=== PATIENT | female | born 1980 | race American Indian/Alaskan Native ===

== ENCOUNTER 2016-11-24 21:05 | Emergency (ER) | payer OTHER ==
[2016-11-24] MEDS ORDERED: CATAPRES ONE (21:50)
[2016-11-24] MEDS ORDERED: CATAPRES PO ONE (22:10)
[2016-11-25] MEDS ORDERED: MOTRIN PO ONE (07:31)
[2016-11-25] MEDS ORDERED: NORVASC PO ONE (07:32)
--- NOTE | 2016-11-25 07:36 | Emergency Department Report ---
HPI - General Chief Complaint: Medical Clearance Time Seen by Provider: 11/25/16 07:30 - HPI HPI: 36-year-old -[place] female comes in for complaint of fever or chills lightheadedness 2 days. Patient reports that she has been dealing with cold symptoms and generalized body pains for about 2 weeks. She admits to nasal congestion denies any headaches denies any sore throats admit to sneezing and coughing that been going on for 2-3 days occasionally. Is taken no medication she has a past medical history of hypertension and arthritis she currently takes no medication for hypertension states that the last time she went to her primary care provider they did not give her any prescriptions. Review of chart shows that her blood pressure was 152/108. ED Past Medical Hx - Past Medical History Previous Medical History?: Yes Hx Hypertension: Yes - Surgical History Past Surgical History?: No - Social History Smoking Status: Never Smoker - Medications Home Medications: Home Medications Medication Instructions Recorded Confirmed Last Taken Type Fluticasone [Flonase] 1 spray NS QDAY #1 bottle 11/25/16 Unknown Rx Hydrochlorothiazide [HCTZ] 25 mg PO QDAY #30 tablet 11/25/16 Unknown Rx Ibuprofen [Motrin 800 MG tab] 800 mg PO ONCE #30 tablet 11/25/16 Unknown Rx Loratadine/Pseudoephedrine 1 tab PO Q12H #60 tablet 11/25/16 Unknown Rx [Claritin-D 12HR] amLODIPine [Norvasc] 10 mg PO DAILY #30 tab 11/25/16 Unknown Rx ED Review of Systems ROS: Stated complaint: FEVER Other details as noted in HPI Constitutional: chills, fever ENT: congestion (nasal congestion), other (sneezing). denies: ear pain, throat pain Respiratory: cough, other. denies: shortness of breath, wheezing Cardiovascular: denies: chest pain, palpitations Gastrointestinal: denies: abdominal pain, nausea, diarrhea Genitourinary: denies: urgency, dysuria, discharge Musculoskeletal: denies: back pain, joint swelling, arthralgia Skin: denies: rash, lesions Physical Exam - Physical Exam Vital Signs: Vital Signs 11/24/16 11/24/16 11/25/16 21:55 23:29 02:27 Temperature 98.9 F Pulse Rate 86 85 98 H Respiratory 18 20 Rate Blood Pressure 199/127 Blood Pressure 175/115 152/108 [Left] O2 Sat by Pulse 100 100 Oximetry 11/25/16 05:26 Temperature 98.4 F Pulse Rate 68 Respiratory 18 Rate Blood Pressure 154/102 Blood Pressure [Left] O2 Sat by Pulse 98 Oximetry General: Patient's alert and oriented 3. Physical Exam: GENERAL: Alert and oriented x3, no apparent distress, Normal Gait, atraumatic. HEAD: Head is normocephalic and a-traumatic. EYES: Extra ocular muscles are intact. Pupils are equal, round, and reactive to light and accommodation. EARS: symetrical, atraumatic, non tender, ear canal clear and moderate cerumen, tympanic membrance non inflamed. gross auditory nml bilaterally. NOSE: Nose symetrical, Nontender,Nares appeared normal. MOUTH:Mouth is well hydrated and without lesions. Tonsils nonerythematous or swollen, Uvula midline, Tongue not elevated. Mucous membranes are moist. Posterior pharynx clear, no exudate or lesions. Patent airways. NECK: Supple. Non edematous, No carotid bruits. No lymphadenopathy or thyromegaly. LUNGS: Symetrical with respiration, No wheezing, no rales or crackles, CTAB. HEART: S1, S2 present, regular rate and rhythm without murmur, no rubs, no gallops. ABDOMEN: No organomegaly was noted,Positive bowel sounds, soft, and non- distended. . Nontender to palpation on all Quadrants, NO CVA tenderness. EXTREMITIES/MUSCULOSKELETAL: No cyanosis, clubbing, rash, lesions or edema. Full ROM bilaterally. UE/LE Pulses 2+ bilaterally. LE and UE 5+ strength bilaterally NEUROLOGIC: No focal Deficit, Cranial nerves II through XII are grossly intact. No loss of sensation, No facial droop, PSYCHIATRIC: Mood is congruent with affect, denies suicidal or homicidal ideations. SKIN: Warm and dry, No lesions, No ulceration or induration present ED Course Vital Signs 11/24/16 11/24/16 11/25/16 21:55 23:29 02:27 Temperature 98.9 F Pulse Rate 86 85 98 H Respiratory 18 20 Rate Blood Pressure 199/127 Blood Pressure 175/115 152/108 [Left] O2 Sat by Pulse 100 100 Oximetry 11/25/16 05:26 Temperature 98.4 F Pulse Rate 68 Respiratory 18 Rate Blood Pressure 154/102 Blood Pressure [Left] O2 Sat by Pulse 98 Oximetry ED Medical Decision Making - Medical Decision Making Patient's been evaluated by this provider in fast track. 1. we'll give patient ibuprofen 800 mg for body aches. 2. We'll give patient Norvasc 10 mg by mouth now for elevated diastolic 3. We will discharge patient on Zyrtec's 10 mg by mouth daily Flonase 50 mcg 1 spray to each nostril daily 4. Ibuprofen 800 mg one tablet by mouth 3 times a day 5. Hypertension we'll send the patient out on hydrochlorothiazide 25 mg by mouth daily as well as Norvasc 10 mg one tablet by mouth daily we will refer her back to her primary care provider for further evaluation. Critical care attestation.: If time is entered above; I have spent that time in minutes in the direct care of this critically ill patient, excluding procedure time. ED Disposition Clinical Impression: URI (upper respiratory infection) Qualifiers: URI type: unspecified URI Qualified Code(s): J06.9 - Acute upper respiratory infection, unspecified HTN (hypertension) Qualifiers: Hypertension type: essential hypertension Qualified Code(s): I10 - Essential ( primary) hypertension Is pt being admited?: No Does the pt Need Aspirin: No Condition: Stable Instructions: Hypertension (ED), Upper Respiratory Infection (ED) Additional Instructions: Please take medications as prescribed and follow up with her primary care provider within 1-2 weeks. For recheck of blood pressure. See him sooner if symptoms does not get any better or continues to get worse. Prescriptions: amLODIPine [Norvasc] 10 mg PO DAILY #30 tab Fluticasone [Flonase] 1 spray NS QDAY #1 bottle Hydrochlorothiazide [HCTZ] 25 mg PO QDAY #30 tablet Ibuprofen [Motrin 800 MG tab] 800 mg PO ONCE #30 tablet Loratadine/Pseudoephedrine [Claritin-D 12HR] 1 tab PO Q12H #60 tablet Referrals: DR JAVIER [Other] - 3-5 Days Forms: Work/School Release Form(ED)
[2016-11-25 09:36] VITALS: BP 153/129
== END 2016-11-25 09:41 | disposition home or self-care (01) ==
LOC: ED 21:05
DX: J06.9 Acute upper respiratory infection, unspecified (principal); I10 Essential (primary) hypertension
CPT/HCPCS: 99283

== ENCOUNTER 2021-05-28 13:55 | Emergency (ER) | payer OTHER ==
[2021-05-28 14:23] VITALS: BP 151/99
--- NOTE | 2021-05-28 15:49 | Emergency Department Report ---
ED General Adult HPI - General Chief complaint: Medical Clearance Stated complaint: FATIGUE/DISCHARGE [facility] 05/15 Time Seen by Provider: 05/28/21 15:45 Source: patient Mode of arrival: Wheelchair Limitations: No Limitations - History of Present Illness Initial comments: Patient is a 41-year-old female who presents emergency room with complaints of wanting to be retested for COVID-19. Patient states that she tested positive for COVID-19 on 05/15/2021 at [facility] and reports that she was able to be discharged home in did not have to be admitted to the hospital or placed on oxygen. Patient presents to the emergency room stating that she wants to be retested and have another x-ray. She reports that her previous x-ray showed pneumonia and she was given prescriptions at that time. Patient states that her symptoms currently are generalized weakness, fatigue, body aches. Patient denies any worsening of her symptoms and reports that they have been stable since 05/15/2021. Past medical history of lupus. No allergies to medications. - Related Data Previous Rx's Medication Instructions Recorded Last Taken Type Fluticasone [Flonase] 1 spray NS QDAY #1 bottle 11/25/16 Unknown Rx Ibuprofen [Motrin 800 MG tab] 800 mg PO ONCE #30 tablet 11/25/16 Unknown Rx Loratadine/Pseudoephedrine 1 tab PO Q12H #60 tablet 11/25/16 Unknown Rx [Claritin-D 12HR] amLODIPine [Norvasc] 10 mg PO DAILY #30 tab 11/25/16 Unknown Rx hydroCHLOROthiazide [HCTZ] 25 mg PO QDAY #30 tablet 11/25/16 Unknown Rx Allergies Allergy/AdvReac Type Severity Reaction Status Date / Time No Known Allergies Allergy Verified 11/24/16 22:02 ED Review of Systems ROS: Stated complaint: FATIGUE/DISCHARGE [facility] 05/15 Other details as noted in HPI Comment: All other systems reviewed and negative ED Past Medical Hx - Past Medical History Hx Hypertension: Yes Additional medical history: LUPUS/ GOUT/RA - Surgical History Past Surgical History?: No - Social History Smoking Status: Never Smoker - Medications Home Medications: Home Medications Medication Instructions Recorded Confirmed Last Taken Type Fluticasone [Flonase] 1 spray NS QDAY #1 bottle 11/25/16 Unknown Rx Ibuprofen [Motrin 800 MG tab] 800 mg PO ONCE #30 tablet 11/25/16 Unknown Rx Loratadine/Pseudoephedrine 1 tab PO Q12H #60 tablet 11/25/16 Unknown Rx [Claritin-D 12HR] amLODIPine [Norvasc] 10 mg PO DAILY #30 tab 11/25/16 Unknown Rx hydroCHLOROthiazide [HCTZ] 25 mg PO QDAY #30 tablet 11/25/16 Unknown Rx ED Physical Exam - General Limitations: No Limitations General appearance: alert, in no apparent distress - Head Head exam: Present: atraumatic, normocephalic - Eye Eye exam: Present: normal appearance - ENT ENT exam: Present: mucous membranes moist - Respiratory Respiratory exam: Present: normal lung sounds bilaterally. Absent: respiratory distress, wheezes, rales, rhonchi, stridor, chest wall tenderness, accessory muscle use, decreased breath sounds, prolonged expiratory - Cardiovascular Cardiovascular Exam: Present: regular rate, normal rhythm, normal heart sounds. Absent: systolic murmur, diastolic murmur, rubs, gallop - Neurological Exam Neurological exam: Present: alert, oriented X3, CN II-XII intact, normal gait. Absent: motor sensory deficit - Psychiatric Psychiatric exam: Present: normal affect, normal mood - Skin Skin exam: Present: warm, dry, intact ED Course Vital Signs 05/28/21 14:21 Temperature 98 F Pulse Rate 94 H Respiratory 20 Rate Blood Pressure 151/99 [Right] O2 Sat by Pulse 96 Oximetry ED Medical Decision Making - Medical Decision Making Patient is a 41-year-old female who presents emergency room with complaints of wanting to be retested for COVID-19. Patient states that she tested positive for COVID-19 on 05/15/2021 at [facility] and reports that she was able to be discharged home in did not have to be admitted to the hospital or placed on oxygen. Patient presents to the emergency room stating that she wants to be retested and have another x-ray. She reports that her previous x-ray showed pneumonia and she was given prescriptions at that time. Patient states that her symptoms currently are generalized weakness, fatigue, body aches. Patient denies any worsening of her symptoms and reports that they have been stable since 05/15/2021. Past medical history of lupus. No allergies to medications. Vitals are stable. I ambulated patient in the emergency department and she was able to maintain oxygen saturation of 96% or greater on room air. Patient does not meet hospital criteria for admission at this time. This hospital facility does not test for COVID-19 for patients that are being discharged. Given that patient had signs of viral pneumonia almost 2 weeks ago, this likely has not yet resolved as COVID-19 pneumonia can show signs on x-rays for up to 3 months. Discussed the importance of outpatient primary care follow-up for reexamination. Discussed strict return precautions with patient. Advised patient May take Tylenol or ibuprofen as needed for any discomfort. Increase your fluid intake. Follow-up with your primary care doctor for reevaluation. Return to emergency room for any new or worsening symptoms. Critical care attestation.: If time is entered above; I have spent that time in minutes in the direct care of this critically ill patient, excluding procedure time. ED Disposition Clinical Impression: COVID-19 Disposition: 01 HOME / SELF CARE / HOMELESS Is pt being admited?: No Does the pt Need Aspirin: No Condition: Stable Instructions: COVID-19 Frequently Asked Questions, COVID-19 Additional Instructions: May take Tylenol or ibuprofen as needed for any discomfort. Increase your fluid intake. Follow-up with your primary care doctor for reevaluation. Return to emergency room for any new or worsening symptoms. Referrals: your, primary care doctor [Other] - 2-3 Days Time of Disposition: 15:48 Print Language: HAITIAN
== END 2021-05-28 16:26 | disposition home or self-care (01) ==
LOC: ED 13:55
DX: U07.1 COVID-19 (principal); I10 Essential (primary) hypertension; M10.9 Gout, unspecified; M32.9 Systemic lupus erythematosus, unspecified; M06.9 Rheumatoid arthritis, unspecified
CPT/HCPCS: 99282

== ENCOUNTER 2021-06-23 13:38 | Outpatient (CLI) | payer OTHER ==
[2021-06-23 14:30] LABS: Albumin 2.9 g/dL (3.9-5)
== END 2021-06-23 13:39 | disposition home or self-care (01) ==
LOC: LAB 13:38
PROVIDERS: ATTEND Internal Medicine Nephrology
DX: N17.9 Acute kidney failure, unspecified (principal)
CPT/HCPCS: 36415; 80048; 82040; 84100

== ENCOUNTER 2021-07-21 15:30 | Outpatient (CLI) | payer OTHER ==
[2021-07-21 16:28] LABS: Albumin 3.4 g/dL (3.9-5); Calcium 9.3 mg/dL (8.4-10.2)
== END 2021-07-21 15:31 | disposition home or self-care (01) ==
LOC: LAB 15:30
PROVIDERS: ATTEND Internal Medicine Nephrology
DX: N17.9 Acute kidney failure, unspecified (principal); N18.9 Chronic kidney disease, unspecified; M32.9 Systemic lupus erythematosus, unspecified
CPT/HCPCS: 36415; 80048; 82040; 84100

== ENCOUNTER 2021-08-18 14:50 | Outpatient (CLI) | payer OTHER ==
[2021-08-18 16:08] LABS: Albumin 3.7 g/dL (3.9-5); Calcium 8.8 mg/dL (8.4-10.2)
== END 2021-08-18 14:51 | disposition home or self-care (01) ==
LOC: LAB 14:50
PROVIDERS: ATTEND Internal Medicine Nephrology
DX: N17.9 Acute kidney failure, unspecified (principal); M32.9 Systemic lupus erythematosus, unspecified
CPT/HCPCS: 36415; 80048; 82040; 84100

== ENCOUNTER 2021-09-11 07:55 | Outpatient (CLI) | payer OTHER ==
[2021-09-11] MEDS ORDERED: SODIUM CHLORIDE 0.9% 500 ML 500 ML IV SCH (09:00)
[2021-09-11 09:29] LABS: Hematocrit 28.9 % (30.3-42.9); Hemoglobin 9.4 gm/dl (10.1-14.3); Mean Corpuscular HGB Conc 33 % (30-34); Mean Corpuscular Volume 96 fl (79-97); Platelet Count 199 K/mm3 (140-440); Red Blood Count 3.01 M/mm3 (3.65-5.03); Red Cell Distribution Width 13.3 % (13.2-15.2)
[2021-09-11] MEDS ORDERED: HYDROmorphone 1 MG/1 ML INJ IV ONE ×2 (09:46→12:40)
[2021-09-11] MEDS ORDERED: ONDANSETRON 4 MG/2 ML INJ IV ONE (09:47)
[2021-09-11 09:50] LABS: INR 0.87 (0.87-1.13)
[2021-09-11 09:51] LABS: Partial Thromboplastin Time 28.9 Sec. (24.2-36.6)
[2021-09-11] MEDS ORDERED: HYDROmorphone 1 MG/1 ML INJ ONE (12:34)
--- NOTE | 2021-09-11 14:16 | Cat Scan Report ---
CT-GUIDED RENAL BIOPSY INDICATION : ACUTE KIDNEY INJURY. Lupus COMPARISON: None PROCEDURE: The risks (including but not limited to bleeding and infection) and benefits were explain ed to the patient and informed consent was obtained. All CT scans at this location are performed usi ng CT dose reduction for NESTOR by means of automated exposure control. A time out procedure was performed. The procedure site was prepped and draped in the usual sterile f ashion and lidocaine was used for local anesthesia. IV Dilaudid and Zofran were utilized for anxiolys is. IV labetalol was utilized for blood pressure control. Using CT guidance, a 17-gauge introducer needle was advanced to the inferior pole of the left kidney. 2 separate 1.3 cm 18-gauge core biopsies were obtained for pathologic analysis. Postbiopsy scan demonstrated trace postbiopsy bleeding. No large uncontained hemorrhage. The patient tolerated the procedure well with no complications. IMPRESSION: Successful CT-guided biopsy at the inferior pole of the left kidney. Signer Name: Florencio Islas Jr, MD Signed: 09/11/2021 2:11 PM Workstation Name: [id number]
[2021-09-11 16:07] VITALS: BP 124/83
== END 2021-09-11 07:56 | disposition home or self-care (01) ==
LOC: CATHLABREC 07:55
PROVIDERS: ATTEND Internal Medicine Nephrology
DX: N17.9 Acute kidney failure, unspecified (principal); J45.909 Unspecified asthma, uncomplicated; E66.9 Obesity, unspecified; K21.9 Gastro-esophageal reflux disease without esophagitis; M19.90 Unspecified osteoarthritis, unspecified site; M06.9 Rheumatoid arthritis, unspecified; M10.9 Gout, unspecified; Z79.899 Other long term (current) drug therapy; Z98.890 Other specified postprocedural states
CPT/HCPCS: 36415; 50200; 77012; 85027; 85610; 85730; J1170; J2405; J3490; J7040

== ENCOUNTER 2021-11-04 10:01 | Outpatient (CLI) | payer MEDICAID | END 2021-11-04 10:02 | disposition home or self-care (01) | LOC: LAB 10:01 | PROVIDERS: ATTEND Internal Medicine Nephrology | DX: N17.0 Acute kidney failure with tubular necrosis (principal) | CPT/HCPCS: 36415; 80048; 82040; 84100 ==

== ENCOUNTER 2022-01-19 10:54 | Outpatient (CLI) | payer OTHER ==
--- NOTE | 2022-01-19 12:58 | XRay Report ---
Bilateral knee radiographs, 2 views of each knee provided. HISTORY: Bilateral knee pain COMPARISON: None FINDINGS: Right knee: Radiographically moderate right knee osteoarthritis, preferentially involving the medial compartment, which is mildly narrowed. No acute fracture, malalignment, or joint effusion. No focal s oft tissue abnormality. Left knee: Mild left knee osteoarthritis, preferentially involving the medial compartment. No acute f racture, malalignment, or joint effusion. No focal soft tissue abnormality. IMPRESSION: Moderate right and mild left knee osteoarthritis. No acute findings. Signer Name: Don Pineda MD Signed: 01/19/2022 12:54 PM Workstation Name: [id number]
== END 2022-01-19 10:55 | disposition home or self-care (01) ==
LOC: XRAY 10:54
PROVIDERS: ATTEND Internal Medicine
DX: M17.0 Bilateral primary osteoarthritis of knee (principal)

== ENCOUNTER 2022-01-30 14:29 | Outpatient (CLI) | payer MEDICAID ==
[2022-01-30 15:30] LABS: Albumin 3.9 g/dL (3.9-5); Calcium 8.7 mg/dL (8.4-10.2)
== END 2022-01-30 14:30 | disposition home or self-care (01) ==
LOC: LAB 14:29
PROVIDERS: ATTEND Internal Medicine Nephrology
DX: N17.9 Acute kidney failure, unspecified (principal)
CPT/HCPCS: 36415; 80048; 82040; 84100

== ENCOUNTER 2022-04-17 17:43 | Outpatient (CLI) | payer MEDICAID ==
[2022-04-17 18:20] LABS: Albumin 3.7 g/dL (3.9-5); Calcium 8.8 mg/dL (8.4-10.2)
== END 2022-04-17 17:44 | disposition home or self-care (01) ==
LOC: LABHHL 17:43
PROVIDERS: ATTEND Internal Medicine
DX: N17.9 Acute kidney failure, unspecified (principal); N18.9 Chronic kidney disease, unspecified; M32.9 Systemic lupus erythematosus, unspecified
CPT/HCPCS: 36415; 80048; 82040; 84100